=== PATIENT | male | born 1930 | race Caucasian/White ===

== ENCOUNTER 2018-08-10 12:03 | Emergency (ER) | payer OTHER ==
[2018-08-10 14:11] LABS: BASOPHILS # (AUTO) 0.1 10^3/uL (0.0-0.1); BASOPHILS % (AUTO) 0.8 %; EOSINOPHILS # (AUTO) 0.1 10^3/uL (0.0-0.7); EOSINOPHILS % (AUTO) 1.3 %; HGB - HEMOGLOBIN 15.3 g/dL (14.0-18.0); LYMPHOCYTES # (AUTO) 1.1 10^3/uL (1.5-3.5); LYMPHOCYTES % (AUTO) 11.4 %; MEAN CORPUSCULAR HEMOGLOBIN 30.7 pg (27.0-31.0); MEAN CORPUSCULAR HGB CONC 35.3 g/dL (32.0-36.0); MEAN PLATELET VOLUME 6.4 fL (7.4-11.4); MONOCYTES % (AUTO) 10.3 %; NEUTROPHILS # (AUTO) 7.2 10^3/uL (1.5-6.6); NEUTROPHILS % (AUTO) 76.2 %; PLT - PLATELET COUNT 204 10^3/uL (130-450); RED BLOOD COUNT 4.97 10^6/uL (4.70-6.10); RED CELL DISTRIBUTION WIDTH 15.7 % (12.0-15.0); WHITE BLOOD COUNT 9.4 x10^3/uL (4.8-10.8)
--- NOTE | 2018-08-10 14:19 | XRAY Report ---
Reason: pain Procedure Date: 08/10/2018 Accession Number: [id number] / [id number] Procedure: XR - Foot 3 View LT CPT Code: FULL RESULT: EXAM: LEFT FOOT RADIOGRAPHY EXAM DATE: 08/10/2018 01:54 PM. CLINICAL HISTORY: Dorsal pain, swelling and erythema without precipitating injury. COMPARISON: None. TECHNIQUE: 3 views. FINDINGS: Bones: Large osteophyte at the calcaneal insertion normal caliber Achilles tendon.. No fractures or bone lesions. Joints: Normal. No subluxations. Soft Tissues: Moderate dorsal mid and forefoot edema. No air nor radiopaque foreign body. IMPRESSION: 1. No acute bony abnormality. 2. Dorsal mid and forefoot edema. Exclude cellulitis. RADIA
[2018-08-10 14:25] LABS: CREATININE 1.2 mg/dL (0.6-1.2); URIC ACID 8.2 mg/dL (2.6-7.2)
[2018-08-10] MEDS ORDERED: NAPROXEN 250 MG TABLET PO STA (14:40)
[2018-08-10] MEDS ORDERED: DEXAMETHASONE 10 MG/ML VIAL PO STA (14:41)
[2018-08-10] MEDS ORDERED: predniSONE 20 MG TABLET PO STA (14:43)
--- NOTE | 2018-08-10 14:48 | ED Physician Documentation ---
History of Present Illness - Stated complaint Stated Complaint: LEFT FOOT PX - Chief complaint Chief Complaint: Ext Problem - Additonal information Additional information: 88-year-old male presents to the emergency department with complaints of left foot pain which has worsened over the past several days. The patient reports swelling and discomfort with ambulation. The patient denies fevers, redness, calf swelling or calf pain. No recent trauma or injury. Symptoms are described as moderate. No relieving factors no other associated symptoms Review of Systems Constitutional: denies: Fever, Chills Ears: denies: Ear pain Nose: denies: Congestion Cardiac: denies: Chest pain / pressure Respiratory: denies: Cough GI: denies: Abdominal Pain : denies: Hematuria Skin: denies: Rash Musculoskeletal: reports: Extremity pain, Joint pain Neurologic: reports: Generalized weakness Immunocompromised: denies: Chemotherapy PD PAST MEDICAL HISTORY - Past Medical History Cardiovascular: Hypertension, High cholesterol Endocrine/Autoimmune: HyPOthyroidism - Present Medications Home Medications: Ambulatory Orders Medication Instructions Recorded Confirmed Aspirin 81 mg PO DAILY 08/10/18 08/10/18 Gabapentin 08/10/18 Lisinopril 40 mg PO DAILY 08/10/18 08/10/18 Metoprolol Succinate 200 mg PO DAILY 08/10/18 08/10/18 hydroCHLOROthiazide 25 mg PO DAILY 08/10/18 08/10/18 [Hydrochlorothiazide] predniSONE [Prednisone] 40 mg PO DAILY #10 tablet 08/10/18 - Allergies Allergies/Adverse Reactions: Allergies Allergy/AdvReac Type Severity Reaction Status Date / Time No Known Drug Allergies Allergy Verified 08/10/18 12:12 - Social History Does the pt smoke?: No Smoking Status: Never smoker Does the pt drink ETOH?: No Does the pt have substance abuse?: No - Immunizations Immunizations are current?: Yes PD ED PE NORMAL - General General: Alert and oriented X 3, No acute distress - HEENT HEENT: Atraumatic, PERRL, EOMI, Ears normal - Cardiac Cardiac: RRR - Respiratory Respiratory: No respiratory distress, Clear bilaterally - Derm Derm: Normal color - Extremities Extremities: No: No tenderness to palpate - Neuro Neuro: Alert and oriented X 3, Normal speech - Psych Psych: Normal affect PD ED PE EXPANDED - Extremities STIVEN LE visual: 1 - tenderness (The patient has mild swelling and significant tenderness. There is no cellulitic changes or signs of an acute infection. The patient has a normal dorsalis pedis pulse and brisk cap refill. The patient has full active range of motion of the ankle, knee and hip. There is no tenderness in the calf or swelling in the lower extremity) Results - Vitals Vitals: Vital Signs - 24 hr 08/10/18 12:06 Temperature 36.5 C Heart Rate 70 Respiratory 16 Rate Blood Pressure 149/69 H O2 Saturation 98 Oxygen O2 Source Room air - Labs Labs: Laboratory Tests 08/10/18 08/10/18 14:05 14:05 WBC 9.4 RBC 4.97 Hgb 15.3 Hct 43.3 MCV 87.0 MCH 30.7 MCHC 35.3 RDW 15.7 H Plt Count 204 MPV 6.4 L Neut # (Auto) 7.2 H Lymph # (Auto) 1.1 L [place] # (Auto) 1.0 Eos # (Auto) 0.1 Baso # (Auto) 0.1 Absolute Nucleated RBC 0.03 Nucleated RBC % 0.3 Sodium 136 Potassium 3.2 L Chloride 93 L Carbon Dioxide 33 H Anion Gap 10.0 BUN 18 Creatinine 1.2 Estimated GFR (MDRD) 57 L Glucose 90 Uric Acid 8.2 H Calcium 9.0 Total Creatine Kinase 63 - Rads (name of study) Foot Radiology: Final report received (1. No acute bony abnormality. 2. Dorsal mid and forefoot edema. Exclude cellulitis. ) PD MEDICAL DECISION MAKING - ED course ED course: The patient's workup and physical exam are mostly consistent with gout. There is no hard evidence to suggest an acute infection, DVT or a vascular etiology. The patient appears appropriate for ongoing outpatient management. I discussed the plan with the patient who understands and agrees. I discussed warning signs and recommended returning to the emergency department for any worsening or any concerns. Departure - Departure Disposition: 01 Home, Self Care Clinical Impression: Gout Qualifiers: Gout site: unspecified site Gout etiology: unspecified cause Chronicity: acute Qualified Code(s): M10.9 - Gout, unspecified Condition: Good Instructions: Gout, Gout Eat Prevent Follow-Up: Provider,Other [Primary Care Provider] - Within 1 week Prescriptions: predniSONE [Prednisone] 40 mg PO DAILY #10 tablet Comments: Please follow-up with your primary care, they may need to refer you to podiatry or orthopedics for further management of your acute condition. Please return to the emergency department for any worsening or any concerns.
[2018-08-10] MEDS ORDERED: COLCHICINE 0.6 MG TABLET PO STA (14:56)
[2018-08-10 15:30] VITALS: BP 144/66
== END 2018-08-10 15:25 | disposition home or self-care (01) ==
LOC: ED 12:03
DX: M10.9 Gout, unspecified (principal); I10 Essential (primary) hypertension; Z79.82 Long term (current) use of aspirin
CPT/HCPCS: 36415; 73630; 80048; 82550; 84550; 85025; 99283; A9270; J7512

== ENCOUNTER 2019-06-15 11:00 | Outpatient (CLI) | payer OTHER ==
[2019-06-15 11:24] LABS: CALCIUM 8.8 mg/dL (8.5-10.3); CREATININE 1.1 mg/dL (0.6-1.2)
== END 2019-06-15 11:01 | disposition home or self-care (01) ==
LOC: LAB 11:00
PROVIDERS: ATTEND Internal Medicine
DX: I50.31 Acute diastolic (congestive) heart failure (principal)
CPT/HCPCS: 36415; 80048

== ENCOUNTER 2019-08-14 13:25 | Inpatient (IN) | payer MEDICARE, OTHER ==
--- NOTE | 2019-08-14 14:30 | XRAY Report ---
Reason: sob Procedure Date: 08/14/2019 Accession Number: [id number] / [id number] Procedure: XR - Chest 2 View X-Ray CPT Code: 33879 FULL RESULT: EXAM: CHEST RADIOGRAPHY EXAM DATE: 08/14/2019 01:51 PM. CLINICAL HISTORY: Sob. COMPARISON: None. TECHNIQUE: 2 views. FINDINGS: Lungs/Pleura: Bilateral lower lung predominant foci of airspace consolidation could reflect pneumonia. Small bilateral pleural effusion is seen. No pneumothorax. Mediastinum: Heart size at the upper limit of normal. Tortuous thoracic aorta with atheromatous calcification of the arch. Other: None. IMPRESSION: 1. Low lung predominant opacities could reflect pneumonia. 2. Bilateral pleural effusions are seen. RADIA
[2019-08-14] MEDS ORDERED: IPRATROPIUM/ALBUTEROL 3 ML NEB INH STA (14:44)
--- NOTE | 2019-08-14 14:47 | ED Physician Documentation ---
PD HPI DYSPNEA - Stated complaint Stated Complaint: DIFFICUTLY BREATHING - Chief complaint Chief Complaint: Resp - History obtained from History obtained from: Patient, Family - History of Present Illness Timing - onset: How many weeks ago (4-5) Timing - onset during: Rest Timing - duration: Weeks (4-5) Timing - details: Gradual onset Pain level max: 0 Pain level now: 0 Inciting event(s): No: Out of meds, URI, Allergic rxn/anaphylaxis, Exercise, Exposure (ie smoke), FB / choking, Immobilization/travel, Emotional event Improved by: Rest Worsened by: Exertion Associated symptoms: Wheezing. No: Fever, Cough, Hemoptysis, Chest pain / discomfort, Palpitations, Diaphoresis, Bilateral edema, Unilateral edema, Anxiety Recently seen: Clinic (Patient was recently diagnosed with atrial fibrillation. Started on Lasix and hydralazine approximately a month ago) Review of Systems Ten Systems: 10 systems reviewed and negative Constitutional: denies: Fever, Chills Ears: denies: Ear pain Nose: denies: Rhinorrhea / runny nose, Congestion Throat: denies: Sore throat Cardiac: denies: Chest pain / pressure, Palpitations GI: denies: Nausea, Vomiting, Diarrhea Skin: denies: Rash Musculoskeletal: denies: Neck pain, Back pain Neurologic: denies: Headache PD PAST MEDICAL HISTORY - Past Medical History Past Medical History: Yes Cardiovascular: Hypertension, High cholesterol, Atrial fibrillation Endocrine/Autoimmune: HyPOthyroidism - Past Surgical History Past Surgical History: No - Present Medications Home Medications: Ambulatory Orders Medication Instructions Recorded Confirmed Aspirin 81 mg PO DAILY 08/10/18 08/10/18 Gabapentin 08/10/18 Lisinopril 40 mg PO DAILY 08/10/18 08/10/18 Metoprolol Succinate 200 mg PO DAILY 08/10/18 08/10/18 hydroCHLOROthiazide 25 mg PO DAILY 08/10/18 08/10/18 [Hydrochlorothiazide] predniSONE [Prednisone] 40 mg PO DAILY #10 tablet 08/10/18 - Allergies Allergies/Adverse Reactions: Allergies Allergy/AdvReac Type Severity Reaction Status Date / Time No Known Drug Allergies Allergy Verified 08/10/18 12:12 - Social History Does the pt smoke?: No Smoking Status: Never smoker Does the pt drink ETOH?: No Does the pt have substance abuse?: No - Immunizations Immunizations are current?: Yes - POLST Patient has POLST: No PD ED PE NORMAL - Vitals Vital signs reviewed: Yes - General General: Alert and oriented X 3, No acute distress, Well developed/nourished - HEENT HEENT: PERRL, Moist mucous membranes - Neck Neck: Supple, no meningeal sign - Cardiac Cardiac: Other (Irregularly irregular) - Respiratory Respiratory: Other (Diminished breath sounds and wheezing bilaterally) - Abdomen Abdomen: Soft, Non tender, Non distended - Derm Derm: Warm and dry - Extremities Extremities: Other (1+ bilateral lower extremity edema) - Neuro Neuro: Alert and oriented X 3 - Psych Psych: Normal mood, Normal affect Results - Vitals Vitals: Vital Signs - 24 hr 08/14/19 08/14/19 08/14/19 13:30 14:37 14:57 Temperature 36.9 C Heart Rate 79 77 90 Respiratory 18 24 18 Rate Blood Pressure 143/76 H 141/65 H O2 Saturation 95 92 Oxygen O2 Source Room air - Labs Labs: Laboratory Tests 08/14/19 08/14/19 08/14/19 14:53 14:53 14:53 WBC 15.0 H RBC 3.89 L Hgb 11.4 L Hct 35.4 L MCV 91.0 MCH 29.3 MCHC 32.2 RDW 16.7 H Plt Count 165 MPV 9.2 Neut # (Auto) 13.0 H Lymph # (Auto) 0.6 L [place] # (Auto) 1.0 Eos # (Auto) 0.1 Baso # (Auto) 0.1 Absolute Nucleated RBC 0.00 Nucleated RBC % 0.0 Sodium 140 Potassium 4.4 Chloride 101 Carbon Dioxide 27 Anion Gap 12.0 BUN 32 H Creatinine 1.2 Estimated GFR (MDRD) 57 L Glucose 133 H Calcium 8.4 L Total Bilirubin 2.1 H AST 43 H ALT 54 Alkaline Phosphatase 106 B-Natriuretic Peptide 404 H Total Protein 7.0 Albumin 3.8 Globulin 3.2 Albumin/Globulin Ratio 1.2 Lipase 34 - Rads (name of study) cxr Radiology: Prelim report reviewed, EMP read contemporaneously, See rad report (Low lung predominant opacities could reflect pneumonia. Bilateral pleural effusions are seen. ) PD MEDICAL DECISION MAKING - ED course Complexity details: reviewed results, re-evaluated patient, considered differential, d/w patient, d/w family, d/w field sales consultant ED course: Patient presents to the emergency department with what appears to be pneumonia. Feels better after breathing treatment. Also has CHF and was given Lasix. Significant leukocytosis. Port score is 119 points, risk class IV. Discussed the case with Dr. Inman, hospitalist who accepts This document was made in part using voice recognition software. While efforts are made to proofread this document, sound alike and grammatical errors may occur. Departure - Departure Disposition: ED Place in Observation Clinical Impression: Pneumonia Qualifiers: Pneumonia type: due to unspecified organism Laterality: bilateral Lung location: lower lobe of lung Qualified Code(s): J18.1 - Lobar pneumonia, unspecified organism CHF (congestive heart failure) Qualifiers: Heart failure type: unspecified Heart failure chronicity: acute on chronic Qualified Code(s): I50.9 - Heart failure, unspecified Leukocytosis Qualifiers: Leukocytosis type: unspecified Qualified Code(s): D72.829 - Elevated white blood cell count, unspecified Condition: Stable
[2019-08-14 14:56] LABS: BASOPHILS # (AUTO) 0.1 10^3/uL (0.0-0.1); BASOPHILS % (AUTO) 0.5 %; EOSINOPHILS # (AUTO) 0.1 10^3/uL (0.0-0.7); EOSINOPHILS % (AUTO) 0.9 %; HGB - HEMOGLOBIN 11.4 g/dL (14.0-18.0); LYMPHOCYTES # (AUTO) 0.6 10^3/uL (1.5-3.5); LYMPHOCYTES % (AUTO) 4.1 %; MEAN CORPUSCULAR HEMOGLOBIN 29.3 pg (27.0-31.0); MEAN CORPUSCULAR HGB CONC 32.2 g/dL (32.0-36.0); MEAN PLATELET VOLUME 9.2 fL (7.4-11.4); MONOCYTES % (AUTO) 6.7 %; NEUTROPHILS % (AUTO) 86.9 %; PLT - PLATELET COUNT 165 10^3/uL (130-450); RED BLOOD COUNT 3.89 10^6/uL (4.70-6.10); RED CELL DISTRIBUTION WIDTH 16.7 % (12.0-15.0)
[2019-08-14 15:11] LABS: ALBUMIN 3.8 g/dL (3.2-5.5); ALBUMIN/GLOBULIN RATIO 1.2 (1.0-2.2); BILIRUBIN,TOTAL 2.1 mg/dL (0.2-1.0); CALCIUM 8.4 mg/dL (8.5-10.3); CREATININE 1.2 mg/dL (0.6-1.2)
[2019-08-14] MEDS ORDERED: cefTRIAXone 1 GM VIAL IVP STA (15:21)
[2019-08-14] MEDS ORDERED: AZITHROMYCIN INJ 500 MG in SODIUM CHLORIDE 0.9% 250 ML IV STA (15:21)
[2019-08-14] MEDS ORDERED: FUROSEMIDE 40 MG/4 ML VIAL IVP STA (15:21)
[2019-08-14] MEDS ORDERED: SODIUM CHLORIDE FLUSH 0.9% 10 ML SYRINGE IVP PRN (15:33)
--- NOTE | 2019-08-14 16:11 | HISTORY & PHYSICAL EXAMINATION ---
Chief Complaint - Chief Complaint Chief Complaint: Shortness of breath History of Present Illness - Admitted From Admitted From:: Home - History Obtained From Records Reviewed: Yes History obtained from: Patient, Son, ER Physician - History of Present Illness HPI Comment/Other: This is a 89 year old male with a past medical history significant for h ypertension and atrial fibrillation (on Eliquis) who presents from home complaining of dyspnea over the past few days that has become more severe. He reports a nonproductive cough but that he has been sneezing colored mucus. Reports no chest pain or palpitations and denies fevers, leg swelling, and orthopnea. He reports no sick contacts and that he did receive the flu vaccine this year. He has no other complaints except for the dyspnea. He was recently diagnosed with atrial fibrillation and was started on Eliquids. In the emergency department, he was afebrile, tachycardic in the 90's and in atrial fibrillation, not tachypnic, but saturating 92% on room air. His labs revealed a white count of 15 with a left shift, elevated BUN of 32, and BNP of 404. His x-ray was suggestive of bilateral lower lung opacities. He was given Azithromycin, Ceftriaxone, and Lasix 40mg IV. Medicine was then consulted for admission. I did speak with the patient and son regarding code status. The patient would like to be DNR but is agreeable to short term intubation if necessary. History - Past Medical History Cardiovascular: reports: Hypertension, High cholesterol, Atrial fibrillation MRSA Hx?: No - Past Surgical History General: reports: Appendectomy, Other (Inguinal hernia repair) - Family & Social History Family History: Mother: , Cancer, Father: Family History Comment/Other: He reports his mother from a cancer he cannot recall in her 50's. He reports no other pertinent family history. Living arrangement: At home Living Situation: With spouse/s.o. Social History Notes: He lives here on [address] with his . He retired from the in the 's. He previously smoked for about 15 years but quite in 1974. He drinks two alcoholic beverages a night. - Substance History Use: Uses substance without health or social issues: Alcohol - POLST Patient has POLST: No Meds/Allgy - Home Medications Home Medications: Ambulatory Orders Medication Instructions Recorded Confirmed Aspirin 81 mg PO DAILY 08/10/18 08/10/18 Gabapentin 08/10/18 Lisinopril 40 mg PO DAILY 08/10/18 08/10/18 Apixaban [Eliquis] 5 mg PO BID 08/14/19 08/14/19 Atorvastatin [Lipitor] 40 mg QPM 08/14/19 08/14/19 Carvedilol [Coreg] 12.5 mg PO BID 08/14/19 08/14/19 Furosemide [Lasix] 40 mg PO DAILY 08/14/19 Hydralazine HCl 50 mg PO BID 08/14/19 08/14/19 - Allergies Allergies/Adverse Reactions: Allergies Allergy/AdvReac Type Severity Reaction Status Date / Time No Known Drug Allergies Allergy Verified 08/10/18 12:12 Review of Systems - Constitutional Constitutional: denies: Fatigue, Fever, Chills, Weakness - Ears, Nose & Throat Ears, Nose & Throat: reports: Nasal congestion - Cardiovascular Cariovascular: reports: Exertional dyspnea, Decr. exercise tolerance. denies: Palpitations, Chest pain, Edema - Respiratory Respiratory: reports: Cough, SOB at rest, SOB with exertion. denies: Sputum production - Gastrointestinal Gastrointestinal: denies: Abdominal pain, Nausea, Vomiting - Genitourinary Genitourinary: denies: Dysuria, Frequency, Urgency - Musculoskeletal Musculoskeletal: denies: Muscle weakness - Integumentary Integumentary: denies: Rash - Neurological Neurological: denies: General weakness, Focal weakness - All Other Systems All Other Systems: reports: Reviewed and negative Prior Level of Functionality: Independent with ADL's. Ambulates with a cane at baseline. Exam - Vital Signs Reviewed Vital Signs: Yes Vital Signs: Vital Signs x48h Temp Pulse Resp BP Pulse Ox 08/14/19 14:57 90 18 08/14/19 14:37 77 24 141/65 H 92 08/14/19 13:30 36.9 C 79 18 143/76 H 95 - Physical Exam General Appearance: positive: No acute distress, Alert Eyes Bilateral: positive: Normal inspection ENT: positive: ENT inspection nml Neck: positive: Nml inspection Respiratory: positive: No respiratory distress, Rales, Other (Diminished breath sounds.). negative: Breath sounds nml Cardiovascular: positive: Irregularly irregular, Tachycardia, Systolic murmur. negative: Regular rate & rhythm, Bradycardia Abdomen: positive: Non-tender, No distention. negative: Tenderness, Guarding, Rebound Skin: positive: No rash, Warm, Dry Extremities: positive: Full ROM, Pedal edema (Trace pitting edema in bilateral lower extremities) Neurologic/Psychiatric: positive: Oriented x3, Other (No focal motor deficits.). negative: Disoriented to person, Disoriented to place, Disoriented to time, Weakness Conclusion/Plan - Problem List (1) Community acquired pneumonia Conclusion/Plan: His presentation and x-ray findings are concerning for community acquired bilat eral lower lobe pneumonia. His BNP is elevated but he does not appear overtly hypervolemic so do not suspect that this is heart failure. He fortunately does not appear septic despite his white count being elevated. He is also not hypoxic but his O2 sats are on the lower side. Pneumonia Severity Index puts him at Risk Class IV and hospitalization is recommended. Will treat with Ceftriaxone and Azithroymcin. Check Influenza PCR and blood cultures. (2) Atrial fibrillation Conclusion/Plan: This is a new diagnosis for him but he is rate controlled with Carvedilol and Eliquids. Unclear if this paroxsymal or persistent. Will resume Carvedilol and Eliquis. (3) Hypertension Conclusion/Plan: He is on multiple antihypertensives at home and he is currently hypertensive. Will resume his home Carvedilol, Amlodipine, Hydralazine now. Will continue his Lisinopril if his BUN improves in the morning. - Lab Results Lab results reviewed: Yes Fish Bones: 08/14/19 14:53 08/14/19 14:53 - Diagnostic Imaging Results Diagnostic Imaging Results: positive: Final report reviewed, Read independently Diagnostic Imaging Results Comments: Tiny bilateral pleural effusions. Possible opacities in base of lungs bilaterally. - EKG Results EKG Interpreted Independently: Yes EKG Findings: Atrial fibrillation without evidence of ischemia. Core Measures - Anticipated LOS I expect patient to be DC'd or transferred within 96 hours.: Yes - Issues Hospital Issues and Management Plan: Pneumonia and possible heart failure requiring hospital admission for management including antibiotics and possible diuresis. - DVT/VTE - Prophylaxis VTE/DVT Device ordered at admit?: Yes VTE/DVT Prophylaxis med ordered at admit?: No Not Ordered - Medical Reason: Not indicated
[2019-08-14] MEDS ORDERED: ONDANSETRON 4 MG/2 ML VIAL IVP PRN (17:20)
[2019-08-14] MEDS: SODIUM CHLORIDE FLUSH 0.9% 10 ML SYRINGE IVP SCH ×2 (17:24→23:44)
[2019-08-14] MEDS: ACETAMINOPHEN 325 MG TABLET PO PRN (17:33)
[2019-08-14] MEDS: GABAPENTIN 300 MG CAPSULE PO SCH ×2 (17:34→21:03)
[2019-08-14] MEDS: hydrALAZINE 25 MG TABLET PO SCH (21:02)
[2019-08-14] MEDS: APIXABAN 5 MG TABLET PO SCH (21:02)
[2019-08-14] MEDS: CARVEDILOL 12.5 MG TABLET PO SCH (21:02)
[2019-08-14] MEDS: ATORVASTATIN 40 MG TABLET PO SCH (21:02)
[2019-08-15] MEDS: GABAPENTIN 300 MG CAPSULE PO SCH ×3 (05:07→22:09)
[2019-08-15 07:42] LABS: CALCIUM 7.8 mg/dL (8.5-10.3); CREATININE 1.2 mg/dL (0.6-1.2); MAGNESIUM 2.2 mg/dL (1.7-2.8); PHOSPHORUS 3.2 mg/dL (2.5-4.6)
[2019-08-15 07:58] LABS: BASOPHILS % (AUTO) 0.3 %; EOSINOPHILS # (AUTO) 0.2 10^3/uL (0.0-0.7); EOSINOPHILS % (AUTO) 1.5 %; HGB - HEMOGLOBIN 10.1 g/dL (14.0-18.0); LYMPHOCYTES # (AUTO) 0.6 10^3/uL (1.5-3.5); LYMPHOCYTES % (AUTO) 4.9 %; MEAN CORPUSCULAR HEMOGLOBIN 29.2 pg (27.0-31.0); MEAN CORPUSCULAR HGB CONC 31.9 g/dL (32.0-36.0); MEAN CORPUSCULAR VOLUME 91.6 fL (80.0-94.0); MEAN PLATELET VOLUME 9.8 fL (7.4-11.4); MONOCYTES # (AUTO) 0.8 10^3/uL (0.0-1.0); MONOCYTES % (AUTO) 6.8 %; NEUTROPHILS # (AUTO) 10.4 10^3/uL (1.5-6.6); NEUTROPHILS % (AUTO) 85.9 %; PLT - PLATELET COUNT 166 10^3/uL (130-450); RED BLOOD COUNT 3.46 10^6/uL (4.70-6.10); RED CELL DISTRIBUTION WIDTH 16.6 % (12.0-15.0); WHITE BLOOD COUNT 12.1 x10^3/uL (4.8-10.8)
[2019-08-15] MEDS ORDERED: LISINOPRIL 20 MG TABLET PO SCH (09:00)
[2019-08-15] MEDS: cefTRIAXone 1 GM in SODIUM CHLORIDE 0.9% MINIBAG 100 ML IV SCH (09:05)
[2019-08-15] MEDS: APIXABAN 5 MG TABLET PO SCH ×2 (09:05→20:00)
[2019-08-15] MEDS: SODIUM CHLORIDE FLUSH 0.9% 10 ML SYRINGE IVP SCH ×2 (09:05→17:39)
[2019-08-15] MEDS: CARVEDILOL 12.5 MG TABLET PO SCH (09:05)
[2019-08-15] MEDS: ASPIRIN EC 81 MG TABLET PO SCH (09:05)
[2019-08-15] MEDS: amLODIPine 5 MG TABLET PO SCH (09:05)
[2019-08-15] MEDS: hydrALAZINE 25 MG TABLET PO SCH ×2 (09:05→20:00)
[2019-08-15] MEDS: AZITHROMYCIN 250 MG TABLET PO SCH (09:05)
[2019-08-15] MEDS: IPRATROPIUM/ALBUTEROL 3 ML NEB INH PRN (12:59)
--- NOTE | 2019-08-15 13:09 | PROVIDER PROGRESS NOTE ---
Subjective - Prog Note Date Prog Note Date: 08/15/19 - Subjective Subjective: He had a few 2 second pauses overnight on telemetry while he was asleep. This morning he reports feeling well. He was placed on oxygen overnight and he is complaining that the cannula is uncomfortable. Reports no chest pain or palpitations. He would like to go home as soon as possible. Current Medications - Current Medications Current Medications: Active Medications Acetaminophen (Tylenol) 650 mg PO Q4HR PRN PRN Reason: Pain 1 to 4 Last Admin: 08/14/19 17:33 Dose: 650 mg Albuterol/Ipratropium (Duoneb) 3 ml INH Q4HR PRN PRN Reason: Wheezing Last Admin: 08/15/19 12:59 Dose: 3 ml Amlodipine Besylate (Norvasc) 10 mg PO DAILY [facility] Last Admin: 08/15/19 09:05 Dose: 10 mg Apixaban (Eliquis) 5 mg PO BID [facility] Last Admin: 08/15/19 09:05 Dose: 5 mg Aspirin (Ecotrin) 81 mg PO DAILY [facility] Last Admin: 08/15/19 09:05 Dose: 81 mg Atorvastatin Calcium (Lipitor) 40 mg PO QPM [facility] Last Admin: 08/14/19 21:02 Dose: 40 mg Azithromycin (Zithromax) 250 mg PO DAILY [facility] Last Admin: 08/15/19 09:05 Dose: 250 mg Carvedilol (Coreg) 6.25 mg PO BID [facility] Gabapentin (Neurontin) 600 mg PO TID [facility] Last Admin: 08/15/19 05:07 Dose: Not Given Hydralazine HCl (Apresoline) 50 mg PO BID [facility] Last Admin: 08/15/19 09:05 Dose: 50 mg Ceftriaxone Sodium 1 gm/ (Sodium Chloride) 100 mls @ 200 mls/hr IV DAILY [facility] Last Infusion: 08/15/19 09:35 Dose: Infused Ondansetron HCl (Zofran Inj) 4 mg IVP Q6HR PRN PRN Reason: Nausea / Vomiting Last Admin: 08/14/19 17:24 Dose: 4 mg Sodium Chloride (Normal Saline Flush 0.9%) 10 ml IVP PRN PRN PRN Reason: NEEDED PER PROVIDER ORDERS Sodium Chloride (Normal Saline Flush 0.9%) 10 ml IVP 0100,0900,1700 [facility] Last Admin: 08/15/19 09:05 Dose: 10 ml Aspirin 81 mg PO DAILY 08/10/18 Gabapentin 600 mg PO 0800,1300 08/10/18 Lisinopril 40 mg PO DAILY 08/10/18 Apixaban [Eliquis] 5 mg PO BID 08/14/19 Atorvastatin [Lipitor] 40 mg QPM 08/14/19 Carvedilol [Coreg] 12.5 mg PO BID 08/14/19 Furosemide [Lasix] 40 mg PO DAILY 08/14/19 Gabapentin [Neurontin] 900 mg PO HS 08/14/19 Hydralazine HCl 50 mg PO BID 08/14/19 Potassium Chloride [Micro-K] 10 meq PO DAILY 08/14/19 cloNIDine [Catapres] 0.1 mg PO BID 08/14/19 Objective - Vital Signs/Intake & Output Reviewed Vital Signs: Yes Vital Signs: Vital Signs x48h Temp Pulse Pulse Resp BP Pulse Ox 08/15/19 13:02 80 18 08/15/19 08:00 37.2 C 87 17 113/65 93 08/15/19 05:26 37.6 C H 86 16 124/53 L 93 Intake & Output: Intake & Output 08/12/19 08/13/19 08/14/19 08/15/19 23:59 23:59 23:59 23:59 Intake Total 400 450 Output Total 200 250 Balance 200 200 - Objective General Appearance: positive: No acute distress, Alert Eyes Bilateral: positive: Normal inspection ENT: positive: ENT inspection nml, Other (Nasal cannula in place) Neck: positive: Nml inspection Respiratory: positive: No respiratory distress, Other (Diminished breath sounds). negative: Wheezes, Rales Cardiovascular: positive: Irregularly irregular, Systolic murmur. negative: No murmur, Tachycardia, Bradycardia Abdomen: positive: Non-tender, No distention. negative: Tenderness Skin: positive: No rash, Warm, Dry Extremities: positive: Full ROM, Pedal edema (Trace edema in lower extremities) Neurologic/Psychiatric: positive: Oriented x3. negative: Disoriented to person, Disoriented to place, Disoriented to time, Weakness - Lab Results Fish Bones: 08/15/19 07:20 08/15/19 07:20 Other Labs: Lab Results x24hrs 08/15/19 08/15/19 08/15/19 Range/Units 07:20 07:20 07:20 WBC (4.8-10.8) x10^3/uL RBC (4.70-6.10) 10^6/uL Hgb (14.0-18.0) g/dL Hct (42.0-52.0) % MCV (80.0-94.0) fL MCH (27.0-31.0) pg MCHC (32.0-36.0) g/dL RDW (12.0-15.0) % Plt Count (130-450) 10^3/uL MPV (7.4-11.4) fL Neut # (Auto) (1.5-6.6) 10^3/uL Lymph # (Auto) (1.5-3.5) 10^3/uL Hancock # (Auto) (0.0-1.0) 10^3/uL Eos # (Auto) (0.0-0.7) 10^3/uL Baso # (Auto) (0.0-0.1) 10^3/uL Absolute Nucleated RBC x10^3/uL Nucleated RBC % /100WBC Sodium 140 (135-145) mmol/L Potassium 3.8 (3.5-5.0) mmol/L Chloride 101 (101-111) mmol/L Carbon Dioxide 28 (21-32) mmol/L Anion Gap 11.0 (6-13) BUN 38 H (6-20) mg/dL Creatinine 1.2 (0.6-1.2) mg/dL Estimated GFR (MDRD) 57 L (>89) Glucose 113 H (70-100) mg/dL Lactic Acid (0.5-2.2) mmol/L Calcium 7.8 L (8.5-10.3) mg/dL Phosphorus 3.2 (2.5-4.6) mg/dL Magnesium 2.2 (1.7-2.8) mg/dL Total Bilirubin (0.2-1.0) mg/dL AST (10-42) IU/L ALT (10-60) IU/L Alkaline Phosphatase (42-121) IU/L B-Natriuretic Peptide 528 H (5-100) pg/mL Total Protein (6.7-8.2) g/dL Albumin (3.2-5.5) g/dL Globulin (2.1-4.2) g/dL Albumin/Globulin Ratio (1.0-2.2) Lipase (22-51) U/L TSH 2.19 (0.34-5.60) uIU/mL Influenza A (Rapid) (Negative) Influenza B (Rapid) (Negative) 08/15/19 08/14/19 08/14/19 Range/Units 07:20 17:00 15:50 WBC 12.1 H (4.8-10.8) x10^3/uL RBC 3.46 L (4.70-6.10) 10^6/uL Hgb 10.1 L (14.0-18.0) g/dL Hct 31.7 L (42.0-52.0) % MCV 91.6 (80.0-94.0) fL MCH 29.2 (27.0-31.0) pg MCHC 31.9 L (32.0-36.0) g/dL RDW 16.6 H (12.0-15.0) % Plt Count 166 (130-450) 10^3/uL MPV 9.8 (7.4-11.4) fL Neut # (Auto) 10.4 H (1.5-6.6) 10^3/uL Lymph # (Auto) 0.6 L (1.5-3.5) 10^3/uL Hancock # (Auto) 0.8 (0.0-1.0) 10^3/uL Eos # (Auto) 0.2 (0.0-0.7) 10^3/uL Baso # (Auto) 0.0 (0.0-0.1) 10^3/uL Absolute Nucleated RBC 0.00 x10^3/uL Nucleated RBC % 0.0 /100WBC Sodium (135-145) mmol/L Potassium (3.5-5.0) mmol/L Chloride (101-111) mmol/L Carbon Dioxide (21-32) mmol/L Anion Gap (6-13) BUN (6-20) mg/dL Creatinine (0.6-1.2) mg/dL Estimated GFR (MDRD) (>89) Glucose (70-100) mg/dL Lactic Acid 1.2 (0.5-2.2) mmol/L Calcium (8.5-10.3) mg/dL Phosphorus (2.5-4.6) mg/dL Magnesium (1.7-2.8) mg/dL Total Bilirubin (0.2-1.0) mg/dL AST (10-42) IU/L ALT (10-60) IU/L Alkaline Phosphatase (42-121) IU/L B-Natriuretic Peptide (5-100) pg/mL Total Protein (6.7-8.2) g/dL Albumin (3.2-5.5) g/dL Globulin (2.1-4.2) g/dL Albumin/Globulin Ratio (1.0-2.2) Lipase (22-51) U/L TSH (0.34-5.60) uIU/mL Influenza A (Rapid) Negative (Negative) Influenza B (Rapid) Negative (Negative) 08/14/19 08/14/19 08/14/19 Range/Units 14:53 14:53 14:53 WBC 15.0 H (4.8-10.8) x10^3/uL RBC 3.89 L (4.70-6.10) 10^6/uL Hgb 11.4 L (14.0-18.0) g/dL Hct 35.4 L (42.0-52.0) % MCV 91.0 (80.0-94.0) fL MCH 29.3 (27.0-31.0) pg MCHC 32.2 (32.0-36.0) g/dL RDW 16.7 H (12.0-15.0) % Plt Count 165 (130-450) 10^3/uL MPV 9.2 (7.4-11.4) fL Neut # (Auto) 13.0 H (1.5-6.6) 10^3/uL Lymph # (Auto) 0.6 L (1.5-3.5) 10^3/uL Hancock # (Auto) 1.0 (0.0-1.0) 10^3/uL Eos # (Auto) 0.1 (0.0-0.7) 10^3/uL Baso # (Auto) 0.1 (0.0-0.1) 10^3/uL Absolute Nucleated RBC 0.00 x10^3/uL Nucleated RBC % 0.0 /100WBC Sodium 140 (135-145) mmol/L Potassium 4.4 (3.5-5.0) mmol/L Chloride 101 (101-111) mmol/L Carbon Dioxide 27 (21-32) mmol/L Anion Gap 12.0 (6-13) BUN 32 H (6-20) mg/dL Creatinine 1.2 (0.6-1.2) mg/dL Estimated GFR (MDRD) 57 L (>89) Glucose 133 H (70-100) mg/dL Lactic Acid (0.5-2.2) mmol/L Calcium 8.4 L (8.5-10.3) mg/dL Phosphorus (2.5-4.6) mg/dL Magnesium (1.7-2.8) mg/dL Total Bilirubin 2.1 H (0.2-1.0) mg/dL AST 43 H (10-42) IU/L ALT 54 (10-60) IU/L Alkaline Phosphatase 106 (42-121) IU/L B-Natriuretic Peptide 404 H (5-100) pg/mL Total Protein 7.0 (6.7-8.2) g/dL Albumin 3.8 (3.2-5.5) g/dL Globulin 3.2 (2.1-4.2) g/dL Albumin/Globulin Ratio 1.2 (1.0-2.2) Lipase 34 (22-51) U/L TSH (0.34-5.60) uIU/mL Influenza A (Rapid) (Negative) Influenza B (Rapid) (Negative) ABX Reporting Has patient been on IV antibiotics over the past 48 hours?: Yes Assessment/Plan - Problem List (1) Community acquired pneumonia Impression: He is now requiring 1-2L of oxygen but his white count is improving and he reports less dyspnea. Was borderline febrile overnight which makes me believe this is likely more pneumonia than heart failure despite his elevated BNP. Will continue Ceftriaxone and Azithromycin, day 2/5. Duonebs as needed. Up and out of bed as tolerated. (2) Atrial fibrillation Impression: He did have a few pauses overnight with the longest being 2.2 seconds. He was asleep and reports no symptoms at this time. Remains rate controlled on Ca rvedilol and Eliquis for anticoagulation. Will decrease Carvedilol to 6.25mg BID and continue to monitor on telemetry. (3) Hypertension Impression: It appears he was hypotensive overnight but this morning he is normotensive. Decreasing his Carvedilol should help improve his blood pressure. Will continue to hold Lisinopril and Clonidine at this time. If his blood pressure remains tenuous, will decrease his norvasc and discontinue his Hydralazine. He does not appear hypovolemic at this time so will hold off on hydrating him.
[2019-08-15] MEDS: CARVEDILOL 3.125 MG TABLET PO SCH (19:59)
[2019-08-15] MEDS: ATORVASTATIN 40 MG TABLET PO SCH (20:00)
[2019-08-15] MEDS: ACETAMINOPHEN 325 MG TABLET PO PRN (20:20)
[2019-08-16] MEDS: SODIUM CHLORIDE FLUSH 0.9% 10 ML SYRINGE IVP SCH ×5 (04:35→23:53)
[2019-08-16 07:30] LABS: BASOPHILS # (AUTO) 0.1 10^3/uL (0.0-0.1); BASOPHILS % (AUTO) 0.5 %; EOSINOPHILS # (AUTO) 0.4 10^3/uL (0.0-0.7); EOSINOPHILS % (AUTO) 3.8 %; HGB - HEMOGLOBIN 10.4 g/dL (14.0-18.0); LYMPHOCYTES # (AUTO) 0.4 10^3/uL (1.5-3.5); LYMPHOCYTES % (AUTO) 3.7 %; MEAN CORPUSCULAR HEMOGLOBIN 28.9 pg (27.0-31.0); MEAN CORPUSCULAR HGB CONC 31.8 g/dL (32.0-36.0); MEAN CORPUSCULAR VOLUME 90.8 fL (80.0-94.0); MEAN PLATELET VOLUME 8.9 fL (7.4-11.4); MONOCYTES # (AUTO) 0.9 10^3/uL (0.0-1.0); MONOCYTES % (AUTO) 7.9 %; NEUTROPHILS # (AUTO) 9.6 10^3/uL (1.5-6.6); NEUTROPHILS % (AUTO) 83.5 %; PLT - PLATELET COUNT 161 10^3/uL (130-450); RED CELL DISTRIBUTION WIDTH 16.5 % (12.0-15.0); WHITE BLOOD COUNT 11.5 x10^3/uL (4.8-10.8)
[2019-08-16 07:38] LABS: CALCIUM 8.1 mg/dL (8.5-10.3); CREATININE 1.1 mg/dL (0.6-1.2); MAGNESIUM 2.3 mg/dL (1.7-2.8)
[2019-08-16] MEDS: IPRATROPIUM/ALBUTEROL 3 ML NEB INH PRN ×2 (08:02→13:48)
--- NOTE | 2019-08-16 08:32 | XRAY Report ---
Reason: Fever. Dyspnea and cough. Eval for PNA. Procedure Date: 08/16/2019 Accession Number: [id number] / [id number] Procedure: XR - Chest 1 View X-Ray CPT Code: 49970 FULL RESULT: EXAM: CHEST RADIOGRAPHY EXAM DATE: 08/16/2019 08:02 AM. CLINICAL HISTORY: Fever. COMPARISON: CHEST 2 VIEW 08/14/2019 1:47 PM. TECHNIQUE: 1 view. FINDINGS: Lungs/Pleura: Increasing hazy opacity of the right lung suggesting effusion is seen. There is patchy predominantly right perihilar airspace disease also seen, in part due to atelectasis. Small left pleural effusion and left basilar airspace disease favoring atelectasis is also noted. No pneumothorax. Pulmonary vascularity is within normal limits. Mediastinum: Within exam limitations, the cardiomediastinal contour is normal. Other: None. IMPRESSION: Worsening lung aeration pattern with increasing hazy opacification of the right lung and right perihilar airspace opacification favoring combination of effusion and underlying airspace disease. RADIA
[2019-08-16] MEDS: APIXABAN 5 MG TABLET PO SCH ×2 (08:54→20:15)
[2019-08-16] MEDS: AZITHROMYCIN 250 MG TABLET PO SCH (08:54)
[2019-08-16] MEDS: CARVEDILOL 3.125 MG TABLET PO SCH ×2 (08:54→20:14)
[2019-08-16] MEDS: amLODIPine 5 MG TABLET PO SCH (08:54)
[2019-08-16] MEDS: hydrALAZINE 25 MG TABLET PO SCH ×2 (08:54→20:15)
[2019-08-16] MEDS: ASPIRIN EC 81 MG TABLET PO SCH (08:54)
[2019-08-16] MEDS: cefTRIAXone 1 GM in SODIUM CHLORIDE 0.9% MINIBAG 100 ML IV SCH (08:55)
[2019-08-16] MEDS: GABAPENTIN 300 MG CAPSULE PO SCH ×3 (08:55→20:15)
[2019-08-16] MEDS ORDERED: FUROSEMIDE 40 MG/4 ML VIAL IVP STA (09:02)
--- NOTE | 2019-08-16 12:14 | PROVIDER PROGRESS NOTE ---
Subjective - Prog Note Date Prog Note Date: 08/16/19 - Subjective Subjective: He was borderline febrile overnight. Remains on 2L of oxygen as he desaturated into the 80's on room air. He reports feeling well. Denies dyspnea. He is easger to go home. Family is at bedside including his and son in law. Current Medications - Current Medications Current Medications: Active Medications Acetaminophen (Tylenol) 650 mg PO Q4HR PRN PRN Reason: Pain 1 to 4 Last Admin: 08/15/19 20:20 Dose: 650 mg Albuterol/Ipratropium (Duoneb) 3 ml INH Q4HR PRN PRN Reason: Wheezing Last Admin: 08/16/19 08:02 Dose: 3 ml Amlodipine Besylate (Norvasc) 10 mg PO DAILY [facility] Last Admin: 08/16/19 08:54 Dose: 10 mg Apixaban (Eliquis) 5 mg PO BID [facility] Last Admin: 08/16/19 08:54 Dose: 5 mg Aspirin (Ecotrin) 81 mg PO DAILY [facility] Last Admin: 08/16/19 08:54 Dose: 81 mg Atorvastatin Calcium (Lipitor) 40 mg PO QPM [facility] Last Admin: 08/15/19 20:00 Dose: 40 mg Azithromycin (Zithromax) 250 mg PO DAILY [facility] Last Admin: 08/16/19 08:54 Dose: 250 mg Carvedilol (Coreg) 6.25 mg PO BID [facility] Last Admin: 08/16/19 08:54 Dose: 6.25 mg Gabapentin (Neurontin) 600 mg PO TID [facility] Last Admin: 08/16/19 08:55 Dose: 600 mg Hydralazine HCl (Apresoline) 50 mg PO BID [facility] Last Admin: 08/16/19 08:54 Dose: 50 mg Ceftriaxone Sodium 1 gm/ (Sodium Chloride) 100 mls @ 200 mls/hr IV DAILY [facility] Last Infusion: 08/16/19 09:25 Dose: Infused Ondansetron HCl (Zofran Inj) 4 mg IVP Q6HR PRN PRN Reason: Nausea / Vomiting Last Admin: 08/14/19 17:24 Dose: 4 mg Sodium Chloride (Normal Saline Flush 0.9%) 10 ml IVP PRN PRN PRN Reason: NEEDED PER PROVIDER ORDERS Sodium Chloride (Normal Saline Flush 0.9%) 10 ml IVP 0100,0900,1700 [facility] Last Admin: 08/16/19 09:40 Dose: 10 ml Aspirin 81 mg PO DAILY 08/10/18 Gabapentin 600 mg PO 0800,1300 08/10/18 Lisinopril 40 mg PO DAILY 08/10/18 Apixaban [Eliquis] 5 mg PO BID 08/14/19 Atorvastatin [Lipitor] 40 mg QPM 08/14/19 Carvedilol [Coreg] 12.5 mg PO BID 08/14/19 Furosemide [Lasix] 40 mg PO DAILY 08/14/19 Gabapentin [Neurontin] 900 mg PO HS 08/14/19 Hydralazine HCl 50 mg PO BID 08/14/19 Potassium Chloride [Micro-K] 10 meq PO DAILY 08/14/19 cloNIDine [Catapres] 0.1 mg PO BID 08/14/19 Objective - Vital Signs/Intake & Output Reviewed Vital Signs: Yes Vital Signs: Vital Signs x48h Temp Pulse Pulse Pulse Resp BP BP 08/16/19 08:10 84 20 08/16/19 08:03 37 C 84 19 133/63 H 08/16/19 04:32 37.0 C 80 16 118/55 L Pulse Ox 08/16/19 08:10 08/16/19 08:03 94 08/16/19 04:32 94 Intake & Output: Intake & Output 08/13/19 08/14/19 08/15/19 08/16/19 23:59 23:59 23:59 23:59 Intake Total 400 1600 520 Output Total 200 252 450 Balance 200 1348 70 - Objective General Appearance: positive: No acute distress, Alert Eyes Bilateral: positive: Normal inspection ENT: positive: ENT inspection nml, Other (Nasla cannula in place) Neck: positive: Nml inspection Respiratory: positive: Chest non-tender, No respiratory distress, Rales (Right lung field) Cardiovascular: positive: Irregularly irregular, Systolic murmur. negative: Tachycardia, Bradycardia Abdomen: positive: Non-tender, No distention. negative: Tenderness, Guarding, Rebound Skin: positive: No rash, Warm, Dry Extremities: positive: Full ROM, No pedal edema Neurologic/Psychiatric: positive: Oriented x3. negative: Disoriented to person, Disoriented to place, Disoriented to time, Weakness - Lab Results Fish Bones: 08/16/19 07:20 08/16/19 07:20 Other Labs: Lab Results x24hrs 08/16/19 08/16/19 Range/Units 07:20 07:20 WBC 11.5 H (4.8-10.8) x10^3/uL RBC 3.60 L (4.70-6.10) 10^6/uL Hgb 10.4 L (14.0-18.0) g/dL Hct 32.7 L (42.0-52.0) % MCV 90.8 (80.0-94.0) fL MCH 28.9 (27.0-31.0) pg MCHC 31.8 L (32.0-36.0) g/dL RDW 16.5 H (12.0-15.0) % Plt Count 161 (130-450) 10^3/uL MPV 8.9 (7.4-11.4) fL Neut # (Auto) 9.6 H (1.5-6.6) 10^3/uL Lymph # (Auto) 0.4 L (1.5-3.5) 10^3/uL Coffee # (Auto) 0.9 (0.0-1.0) 10^3/uL Eos # (Auto) 0.4 (0.0-0.7) 10^3/uL Baso # (Auto) 0.1 (0.0-0.1) 10^3/uL Absolute Nucleated RBC 0.00 x10^3/uL Nucleated RBC % 0.0 /100WBC Sodium 137 (135-145) mmol/L Potassium 3.7 (3.5-5.0) mmol/L Chloride 98 L (101-111) mmol/L Carbon Dioxide 28 (21-32) mmol/L Anion Gap 11.0 (6-13) BUN 36 H (6-20) mg/dL Creatinine 1.1 (0.6-1.2) mg/dL Estimated GFR (MDRD) 63 L (>89) Glucose 114 H (70-100) mg/dL Calcium 8.1 L (8.5-10.3) mg/dL Magnesium 2.3 (1.7-2.8) mg/dL ABX Reporting Has patient been on IV antibiotics over the past 48 hours?: Yes Sepsis Event Note (H) - Evaluation Current Stage of Sepsis: Sepsis Possible source of Sepsis: positive: Pulmonary - Sepsis Criteria Sepsis Criteria: Recorded Temperature greater than 38.3C or Less than 36C, Recorded Heart Rate greater than 90 bpm, Respiratory: Increasing oxygen requi rements, WBC count greater than 12,000 or less than 4000, Hepatic: Bilirubin greater than 2mg/dl Assessment/Plan - Problem List (1) Sepsis due to pneumonia Impression: Evident on second day of hospitalization as he had leukocytosis with left shift, hypoxia, fever, and elevated T bili. Secondary to pneumonia and is improving although he still had a temperature of 37.9 overnight. Leukocytosis is improving. Blood cultures negative to date. Continue antibiotics. (2) Community acquired pneumonia Impression: An x-ray was repeated today which is concerning for a worsening right sided infiltrate. I suspect this likely pneumonia but his BNP was increased yesterday and he remains hypoxic so will administer a dose of IV Lasix. He was febrile overnight which is why I believe this is likely infectious given his leukocytosis as well. Will continue IV Ceftriaxone and Azithromycin. Spirometry use. Up and out of bed three times a day. Wean oxygen to goal saturation of 92%. (3) Atrial fibrillation Impression: He remains rate controlled on 6.25mg of Carvedilol. He did have two episodes of 2s pauses including this morning. Will continue his current dose of Carvedilol and monitor on telemetry. Continue Eliquis. (4) Hypertension Impression: His blood pressure remains is well controlled overall but is increasing a little. Will continue Carvedilol, Norvasc and Hydralazine. Will restart Lisinopril at lower dose.
[2019-08-16] MEDS: LISINOPRIL 5 MG TABLET PO SCH (13:30)
[2019-08-16] MEDS: ATORVASTATIN 40 MG TABLET PO SCH (20:15)
[2019-08-17] MEDS: hydrALAZINE 25 MG TABLET PO SCH (07:58)
[2019-08-17] MEDS: ACETAMINOPHEN 325 MG TABLET PO PRN (07:58)
[2019-08-17] MEDS: AZITHROMYCIN 250 MG TABLET PO SCH (07:58)
[2019-08-17] MEDS: ASPIRIN EC 81 MG TABLET PO SCH (07:58)
[2019-08-17] MEDS: GABAPENTIN 300 MG CAPSULE PO SCH (07:58)
[2019-08-17] MEDS: amLODIPine 5 MG TABLET PO SCH (07:59)
[2019-08-17] MEDS: SODIUM CHLORIDE FLUSH 0.9% 10 ML SYRINGE IVP SCH (07:59)
[2019-08-17] MEDS: APIXABAN 5 MG TABLET PO SCH (07:59)
[2019-08-17] MEDS: cefTRIAXone 1 GM in SODIUM CHLORIDE 0.9% MINIBAG 100 ML IV SCH (07:59)
[2019-08-17] MEDS: LISINOPRIL 5 MG TABLET PO SCH (07:59)
[2019-08-17] MEDS: CARVEDILOL 3.125 MG TABLET PO SCH (07:59)
[2019-08-17 08:08] LABS: CALCIUM 8.1 mg/dL (8.5-10.3); CREATININE 0.9 mg/dL (0.6-1.2); MAGNESIUM 2.2 mg/dL (1.7-2.8)
[2019-08-17 08:15] LABS: BASOPHILS # (AUTO) 0.1 10^3/uL (0.0-0.1); BASOPHILS % (AUTO) 0.7 %; EOSINOPHILS # (AUTO) 0.6 10^3/uL (0.0-0.7); EOSINOPHILS % (AUTO) 5.5 %; HGB - HEMOGLOBIN 11.4 g/dL (14.0-18.0); LYMPHOCYTES # (AUTO) 0.5 10^3/uL (1.5-3.5); LYMPHOCYTES % (AUTO) 5.2 %; MEAN CORPUSCULAR HEMOGLOBIN 28.5 pg (27.0-31.0); MEAN CORPUSCULAR HGB CONC 31.7 g/dL (32.0-36.0); MEAN PLATELET VOLUME 9.5 fL (7.4-11.4); MONOCYTES # (AUTO) 0.8 10^3/uL (0.0-1.0); MONOCYTES % (AUTO) 8.3 %; NEUTROPHILS % (AUTO) 79.7 %; PLT - PLATELET COUNT 188 10^3/uL (130-450); RED CELL DISTRIBUTION WIDTH 16.4 % (12.0-15.0)
[2019-08-17] MEDS ORDERED: LISINOPRIL 20 MG TABLET PO SCH (09:00)
[2019-08-17] MEDS ORDERED: cloNIDine 0.1 MG TABLET PO SCH (09:00)
[2019-08-17] MEDS ORDERED: CARVEDILOL 12.5 MG TABLET PO SCH (09:00)
[2019-08-17] MEDS ORDERED: FUROSEMIDE 40 MG TABLET PO SCH (09:00)
--- NOTE | 2019-08-17 11:53 | Discharge Plan ---
Discharge Plan Problem Reviewed?: Yes Disposition: Home, Self Care Condition: Stable Prescriptions: Azithromycin [Zithromax] 250 mg PO DAILY #3 tablet Cephalexin [Keflex] 250 mg PO QID #20 capsule Saccharomyces Boulardii [Florastor] 250 mg PO BID #10 capsule Diet: Regular Activity Restrictions: Activity as Tolerated Shower Restrictions: No (fall precaution) Instruction Topics: Azithromycin tablets, Cephalexin tablets or capsules, Pneumonia Health Concerns: pneumonia Plan of Treatment: you were treated with pneumonia. today you feel better and strongly request to be d/c to home. pt are prescribed antibiotics to finish the treatment course. RT did de-saturation study and found out pt may need oxygen specially when you are at exertion. Home oxygen is prescribed for you. please followup RT instruction to safely use home oxygen. Care Goals: stabilization and improvement of your medical conditions. Assessment: assessment as the above Additional Instructions or Follow Up instructions: you may followup your PCP in one week. Should your symptoms return or worsen, you may present ER or call 911 for help. No Smoking: If you smoke, Please STOP! Call for help.
--- NOTE | 2019-08-17 12:02 | DISCHARGE SUMMARY ---
Discharge Summary Admit Date: 08/14/19 Discharge Date: 08/17/19 Discharging Provider: JULIO Condition at Discharge: Stable Discharge Disposition: 01 Home, Self Care Discharge Facility Name: home - DIAGNOSES Admission Diagnoses: (1) Community acquired pneumonia (2) Atrial fibrillation (3) Hypertension Discharge Diagnoses with Status of Each Condition: (1) Sepsis due to pneumonia resolved. pt was found to have elevated temperature, elevated WBC, lower BP, lower O2 sats, blood culture was negative for bacteremia. (2) Community acquired pneumonia controlled and stable. pt's WBC is down to normal arrange, 92% sat on room air. pt strongly requested to be d/c to home today. pt is prescribed antibiotics to finish the treatment of course. RT evaluation found pt need oxygen at exertion. pt is prescribed Oxygen to home. advise pt followup RT instruction safely use oxygen at home (3) Atrial fibrillation stable (4) Hypertension stable - HPI History of Present Illness: refer from Dr. Cruz's HPI on 08/14/19 This is a 89 year old male with a past medical history significant for hypertension and atrial fibrillation (on Eliquis) who presents from home co mplaining of dyspnea over the past few days that has become more severe. He reports a nonproductive cough but that he has been sneezing colored mucus. Reports no chest pain or palpitations and denies fevers, leg swelling, and orthopnea. He reports no sick contacts and that he did receive the flu vaccine this year. He has no other complaints except for the dyspnea. He was recently diagnosed with atrial fibrillation and was started on Eliquids. In the emergency department, he was afebrile, tachycardic in the 90's and in atrial fibrillation, not tachypnic, but saturating 92% on room air. His labs revealed a white count of 15 with a left shift, elevated BUN of 32, and BNP of 404. His x-ray was suggestive of bilateral lower lung opacities. He was given Azithromycin, Ceftriaxone, and Lasix 40mg IV. Medicine was then consulted for admission. I did speak with the patient and son regarding code status. The patient would like to be DNR but is agreeable to short term intubation if necessary. - HOSPITAL COURSE Hospital Course: pt was admitted for dyspnea. pt was found to have CAP. pt was treated with antibiotics. pt developed sepsis in hospital. pt was found to have elevated temperature, elevated WBC, lower BP, lower O2 sats, and blood culture was negative for bacteremia. After continued treatment, pt became hemodynamically stable. pt's WBC is down to normal arrange, 92% sat on room air, pt has no more fever, chill. pt felt much better and requested strongly to go to home. RT evaluation found pt need oxygen at exertion. pt is prescribed Oxygen to home. advise pt followup RT instruction safely use oxygen at home. The detail hospital course is as the following 1) Sepsis due to pneumonia resolved. pt was found to have elevated temperature, elevated WBC, lower BP, lower O2 sats, and blood culture was negative for bacteremia. (2) Community acquired pneumonia controlled and stable. pt's WBC is down to normal arrange, 92% sat on room air. pt strongly requested to be d/c to home today. pt is prescribed antibiotics to finish the treatment of course. RT evaluation found pt need oxygen at exertion. pt is prescribed Oxygen to home. advise pt followup RT instruction safely use oxygen at home (3) Atrial fibrillation stable (4) Hypertension stable - ALLERGIES Allergies/Adverse Reactions: Allergies Allergy/AdvReac Type Severity Reaction Status Date / Time No Known Drug Allergies Allergy Verified 08/10/18 12:12 - MEDICATIONS Home Medications: Ambulatory Orders Medication Instructions Recorded Confirmed Aspirin 81 mg PO DAILY 08/10/18 08/14/19 Gabapentin 600 mg PO 0800,1300 08/10/18 08/14/19 Lisinopril 40 mg PO DAILY 08/10/18 08/14/19 Apixaban [Eliquis] 5 mg PO BID 08/14/19 08/14/19 Atorvastatin [Lipitor] 40 mg QPM 08/14/19 08/14/19 Carvedilol [Coreg] 12.5 mg PO BID 08/14/19 08/14/19 Furosemide [Lasix] 40 mg PO DAILY 08/14/19 08/14/19 Gabapentin [Neurontin] 900 mg PO HS 08/14/19 08/14/19 Hydralazine HCl 50 mg PO BID 08/14/19 08/14/19 Potassium Chloride [Micro-K] 10 meq PO DAILY 08/14/19 08/14/19 cloNIDine [Catapres] 0.1 mg PO BID 08/14/19 08/14/19 Azithromycin [Zithromax] 250 mg PO DAILY #3 tablet 08/17/19 Cephalexin [Keflex] 250 mg PO QID #20 capsule 08/17/19 Saccharomyces Boulardii [Florastor] 250 mg PO BID #10 capsule 08/17/19 - PHYSICAL EXAM AT DISCHARGE General Appearance: positive: No acute distress, Alert. negative: Lethargic Eyes Bilateral: positive: Normal inspection, PERRL, No lid inflammation, Conjunctivae nml ENT: positive: ENT inspection nml, Pharynx nml, No signs of dehydration. n egative: Purulent nasal drainage Neck: positive: Nml inspection, Thyroid nml, No JVD, Trachea midline. negative: Thyromegaly, Lymphadenopathy (R), Lymphadenopathy (L), Stiff neck, Tracheal deviation Respiratory: positive: Chest non-tender, No respiratory distress, Breath sounds nml. negative: Wheezes, Rales, Rhonchi Cardiovascular: positive: Regular rate & rhythm, No murmur, No gallop. negative: Irregularly irregular, Extrasystoles, Tachycardia, Bradycardia, Systolic murmur, Diastolic murmur Peripheral Pulses: positive: 2+ Abdomen: positive: Non-tender, No organomegaly, Nml bowel sounds, No distention. negative: Tenderness, Guarding, Rebound Back: positive: Nml inspection. negative: CVA tenderness (R), CVA tenderness (L) Skin: positive: Color nml, No rash, Warm, Dry. negative: Cyanosis, Diaphoresis, Pallor Extremities: positive: Non-tender, Full ROM, Nml appearance. negative: Calf tenderness, Margo's sign/cords Neurologic/Psychiatric: positive: Oriented x3, Sensation nml, Mood/affect nml. negative: Weakness, Sensory loss, Facial droop, Slurred/abnml speech, Depressed mood/affect - LABS Result Diagrams: 08/17/19 07:49 08/17/19 07:49 - SEPSIS Current Stage of Sepsis: Sepsis Possible source of Sepsis: Pulmonary Sepsis Criteria: Recorded Temperature greater than 38.3C or Less than 36C, Recorded Heart Rate greater than 90 bpm, Respiratory: Increasing oxygen requirements, WBC count greater than 12,000 or less than 4000, Hepatic: Bilirubin greater than 2mg/dl - FOLLOW UP Follow Up: you were treated with pneumonia. today you feel better and strongly request to be d/c to home. pt are prescribed antibiotics to finish the treatment course. RT did de-saturation study and found out pt may need oxygen specially when you are at exertion. Home oxygen is prescribed for you. please followup RT instruction to safely use home oxygen. you may followup your PCP in one week. Should your symptoms return or worsen, you may present ER or call 911 for help. - TIME SPENT Time Spent in Discharge (Minutes): 50
[2019-08-17 12:58] VITALS: BP 112/57
== END 2019-08-17 12:55 | disposition home or self-care (01) | DRG 871 ==
LOC: ED 13:25 → UNDOADMOB 15:34 → MS3 15:34 → INTOOBSV 08-15 11:06 → OBSVTOIN 08-15 11:06 → MS3 08-17 00:01 → UNDODISIN 08-17 12:55
PROVIDERS: ADMIT Internal Medicine; ATTEND Nurse Practitioner Gerontology
DX: J18.1 Lobar pneumonia, unspecified organism (principal); A41.9 Sepsis, unspecified organism; J18.9 Pneumonia, unspecified organism; E78.00 Pure hypercholesterolemia, unspecified; R09.02 Hypoxemia; I95.9 Hypotension, unspecified; I48.91 Unspecified atrial fibrillation; I10 Essential (primary) hypertension; Z87.891 Personal history of nicotine dependence; Z66 Do not resuscitate; Z79.01 Long term (current) use of anticoagulants; Z79.82 Long term (current) use of aspirin; Z79.899 Other long term (current) drug therapy
CPT/HCPCS: 36415; 71045; 71046; 80048; 80053; 83605; 83690; 83735; 83880; 84100; 84443; 85025; 87040; 87275; 87276; 93005; 94640; 94761; 96365; 96367; 96375; 99285; A9270; G0378

== ENCOUNTER 2019-08-30 12:53 | Outpatient (CLI) | payer MEDICARE ==
[2019-08-30 13:27] LABS: CALCIUM 8.4 mg/dL (8.5-10.3); CREATININE 1.1 mg/dL (0.6-1.2)
== END 2019-08-30 12:54 | disposition home or self-care (01) ==
LOC: LAB 12:53
PROVIDERS: ATTEND Internal Medicine
DX: I50.32 Chronic diastolic (congestive) heart failure (principal)
CPT/HCPCS: 36415; 80048